=== PATIENT | female | born 1965 | race Two or more races ===

== ENCOUNTER 2024-10-03 09:30 | Day surgery (SDC) | payer MEDICAID ==
[2024-09-30 14:56] LABS: Urine Bacteria None Seen /hpf (None Seen)
[2024-09-30 15:09] LABS: Basophils # (auto) 0 10 ^3/uL (0-0.2); Basophils % (auto) 0.2 % (0.0-2.0); Eosinophils # (auto) 0.1 10 ^3/uL (0-0.8); Eosinophils % (auto) 1.1 % (0.0-7.0); Hematocrit 43.6 % (36.0-46.0); Hemoglobin 14.8 g/dL (12.2-16.2); Lymphocytes # (auto) 2.5 10 ^3/uL (0.4-5.4); Lymphocytes % (auto) 30.4 % (10.0-50.0); Mean Corpuscular Hemoglobin 33.2 pg (28.0-32.0); Mean Corpuscular Volume 97.6 fL (80.0-100.0); Monocytes # (auto) 0.4 10 ^3/uL (0-1.3); Monocytes % (auto) 5.4 % (0.0-12.0); Neutrophils # (auto) 5.2 10 ^3/uL (1.6-8.6); Neutrophils % (auto) 62.9 % (37.0-80.0); Nucleated Red Blood Cells % 0.4 %; Platelet Count (auto) 223 10^3/uL (140-450); Red Blood Cells 4.47 10^6/uL (4.0-5.20); Red Cell Distribution Width 13.3 % (11.8-14.3); White Blood Cell 8.3 10^3/uL (4.4-10.8)
[2024-09-30 15:11] LABS: Urine Blood Negative /uL (Negative); Urine Clarity Clear (Clear); Urine Color Yellow (Yellow); Urine Protein, UAD Negative (Negative); Urine Specific Gravity 1.016 (1.001-1.035); Urine Squamous Epithelial Cell FEW /hpf (<5); Urine Urobilinogen Normal (Negative); Urine WBC < 1 /HPF (0-5); Urine pH 5.5 (5.0-9.0)
[2024-09-30 15:24] LABS: INR 1.03 (0.9-1.15); Partial Thromboplastin Time 24.2 SEC (24.5-34.5); Prothrombin Time 10.9 sec (9.3-11.8)
[2024-09-30 15:44] LABS: Albumin 4.6 g/dL (3.2-4.8); Alkaline Phosphatase 84 U/L (46-116); Anion Gap 8 (5-15); Aspartate Aminotransferase 22 U/L (13-40); BUN/Creatinine Ratio 23.5 (10.0-20.0); Bilirubin, Total 0.3 mg/dL (0.2-1.0); Blood Urea Nitrogen 19 mg/dL (9-23); Calcium 10.3 mg/dL (8.7-10.4); Carbon Dioxide 26 mmol/L (20-31); Chloride 103 mmol/L (98-107); Potassium 4.1 mmol/L (3.5-5.1); Sodium 137 mmol/L (136-145)
[2024-09-30 15:46] LABS: Alanine Aminotransferase 43 U/L (7-40); Glucose 108 mg/dL (74-106)
[~2024-10-03] VITALS: Ht 157.5 cm; Wt 80.3 kg
[~2024-10-03 09:30] MED LIST: ASCO500T11 PO; B-CO1CAP18 PO; BUPR-346 PO; CALC280T PO; CHOL500021 OR; DICL50TA4 PO; DICY20TA PO; FERR1TAB36 PO; FOLI-119 PO; LORA-1123 PO; MELO7.5T7 PO; METO-159 PO; METO10TA3 PO; MULT-1018 PO; NIFE1TAB30 PO; OMEP20TA PO; RIZA10TA12 PO; SERT-160 PO; SERT-289 PO; SIMV40TA18 PO; TRAZ1TAB12 PO; VITA100T3 PO
--- NOTE | 2024-10-03 11:33 | DVHHP2 ---
GI H&P Pre-Op Assessment Date: 10/03/24 Chief complaint: colon cancer screening HPI: per clinic note Past medical history: per clinic note Past surgical history: per clinic note Family history: per clinic note Physical exam: General: NAD, AAOX3 HEENT: PERRL, no scleral icterus, normal hearing, gums without lesions or bleeding, oropharynx clear without erythema or exudate. Neck: Supple without enlargement of the thyroid, or lymphadenopathy. Chest: Normal size and shape, no tenderness, lung ayala clear to auscultation and percussion, nonlabored breathing. Heart: RRR, no murmur Abdomen: non-distended, no tenderness to palpation, +BS, no hepatosplenomegaly Extremities: no edema Neurological: CN II-XII intact, sensation intact in all extremities, 5+ strength in all extremities Skin: No rashes, No jaundice Assessment: - colon cancer screening Plan: - Colonoscopy - Risks (bleeding, infection, perforation, reaction to sedation medications and cardiopulmonary arrest) and benefit of the procedure were explained to patient. Patient agrees to undergo the procedure. SEAMUS GALVIN MD Oct 03, 2024 11:33
[2024-10-03] MEDS ORDERED: fentaNYL CITRATE 100 MCG/2 ML VL ONE (11:40)
[2024-10-03] MEDS ORDERED: PROPOFOL 10 MG/ML 20 ML IV ONE (11:42)
--- NOTE | 2024-10-03 12:04 | DVHOP2 ---
Operative Report DATE OF OPERATION: 10/03/24 PROCEDURE: Colonoscopy. PREOPERATIVE INDICATION: The patient is a 59 -year-old female with h/o colon polyp undergoing colonoscopy for colon cancer screening. POSTOPERATIVE DIAGNOSES: 1. 5 mm rectosigmoid colon polyp removed with hot snare and retrieved. 2. Diffuse diverticulosis with most in the left colon. PROCEDURE PERFORMED BY: Aidan Hogan M.D. SCOPE: Olympus videocolonoscope. ASA CLASS: 3 PREOPERATIVE MEDICATIONS: MAC with Dr Coates PROCEDURE IN DETAIL: After obtaining an informed consent, the patient was placed on left lateral decubitus position. She was then sedated with the above medications. A rectal examination was performed that was normal. The colon oscope was then passed through the anus into the rectosigmoid and through the descending, transverse, and ascending colon up to the cecum with visualization of the appendiceal orifice, base of the cecum and the ileocecal valve. A 5 mm rectosigmoid colon polyp removed with hot snare and retrieved. There was diffuse diverticulosis with most in the left colon. The colonoscope was then withdrawn. The patient tolerated the procedure well without difficulty. WITHDRAWAL TIME: 6 minutes QUALITY OF THE PREP: [place] Bowel Prep score: 7 COMPLICATIONS : None SPECIMENS: Colon polyp DISPOSITION: D/C to home PLAN: 1. Repeat colonoscopy base on biopsy result AIDAN HOGAN MD Oct 03, 2024 12:04
[2024-10-03 12:05] VITALS: PULSE 75; RESP 16; O2SAT 94
--- NOTE | 2024-10-03 12:05 | DVHDS2 ---
Physician Discharge Progress N Final Diagnosis: colon polyp, diverticulosis Operations or Procedures: Operations or Procedures colonoscopy with hot snare polypectomy Condition on Discharge: Good Disposition: Home Discharge Instructions: Diet: Regular Activity: No Restrictions, As Tolerated Medications: resume with previous home medications Follow Up Care: Discharge Statement: "Patient was advised to return to the ER or call 911 if any headaches, dizziness, shortness of breath, chest pain, abdominal pain, bleeding, fevers, or worsening of medical condition. Patient was counseled about treatment plan, medications, possible side effects, patientverbalized understanding. All questions were answered to the best of my ability. This discharge took greater then 30 minutes in planning, reviewing documentation, counseling the patient, and discussing with other team members." SEAMUS GALVIN MD Oct 03, 2024 12:05
[2024-10-03 12:35] VITALS: BP 136/79; PULSE 78; RESP 12; O2SAT 95
== END 2024-10-03 12:45 | disposition home or self-care (01) ==
LOC: GI 09:30
PROVIDERS: ATTEND Internal Medicine Gastroenterology
DX: Z12.11 Encounter for screening for malignant neoplasm of colon (principal); D12.7 Benign neoplasm of rectosigmoid junction; K57.30 Diverticulosis of large intestine without perforation or abscess without bleeding; M19.90 Unspecified osteoarthritis, unspecified site; I10 Essential (primary) hypertension; K58.9 Irritable bowel syndrome, unspecified; F41.9 Anxiety disorder, unspecified; F32.A Depression, unspecified; G43.909 Migraine, unspecified, not intractable, without status migrainosus; K21.9 Gastro-esophageal reflux disease without esophagitis; E78.5 Hyperlipidemia, unspecified; Z79.899 Other long term (current) drug therapy; Z98.890 Other specified postprocedural states
CPT/HCPCS: 36415; 45385; 80053; 81001; 85025; 85610; 85730; 88305; 88342; J2704; J3010; J7030